=== PATIENT | female | born 1955 | race Caucasian/White ===

== ENCOUNTER 2017-08-06 11:45 | Emergency (ER) | payer MEDICARE, MEDICAID ==
[2017-08-06 12:50] LABS: % BASOPHILS 0.5 % (0.0-2.0); % LYMPHOCYTES 30.6 % (20.0-50.0); % MONOCYTES 5.6 % (2.0-10.0); % NEUTROPHILS 59.3 % (40.0-80.0); EOSINOPHILE ABSOLUTE 0.1 Th/cmm (0.1-0.4); HEMATOCRIT 32.6 % (41.0-60); HEMOGLOBIN 10.9 gm/dL (12-16); MEAN CELL VOLUME 87.4 fl (81-100); MEAN CORPUSCULAR HEMOGLOBIN 29.2 pg (27.0-31.0); MEAN CORPUSCULAR HGB CONC 33.5 pg (28.0-36.0); MONOCYTE ABSOLUTE 0.2 Th/cmm (0.3-1.0); PLATELET COUNT 166 Th/cmm (150-400); RED BLOOD COUNT 3.73 Mil/cmm (3.80-5.10); RED CELL DISTRIBUTION WIDTH 12.8 % (11.5-20.0)
--- NOTE | 2017-08-06 12:50 | ED Physician Chart ---
ED Chief Complaint/HPI - Patient Information Date Seen:: 08/06/17 Time Seen:: 12:15 Chief Complaint:: RIGHT LEG PAIN History of Present Illness:: THIS IS A 62 YR FEMALE SENT FROM A RETIREMENT FOR AN EVALUATION OF THE RIGHT LOWER EXTREMITY FOR A FRACTURE THAT SHE SUSTAINED ON LAST . SHE IS NOW UNABLE TO STAND OR WALK BECAUSE OF THE PAIN. Allergies:: Allergies Allergy/AdvReac Type Severity Reaction Status Date / Time divalproex sodium Allergy Mild Verified 08/06/17 12:05 [From Depakote] haloperidol [From Haldol] Allergy Verified 08/06/17 12:06 quetiapine [From Seroquel] Allergy Verified 08/06/17 12:06 topiramate [From Topamax] Allergy Verified 08/06/17 12:06 Vitals:: Vital Signs - 8 hr 08/06/17 12:06 Temp 98.3 F HR 74 RR 19 BP 101/83 O2 Sat % 94 Historian:: Patient, Medical Records Review:: Nurse's Note Reviewed, Transfer documents Reviewed ED Review of Systems - Review of Systems General/Constitutional: No fever, No chills, No weight loss, No weakness, No diaphoresis, No edema, No loss of appetite Skin: No skin lesions, No rash, No bruising Head: No headache, No light-headedness Eyes: No loss of vision, No pain, No diplopia ENT: No earache, No nasal drainage, No sore throat, No tinnitus Neck: No neck pain, No swelling, No thyromegaly, No stiffness, No mass noted Cardio Vascular: No chest pain, No palpitations, No PND, No orthopnea, No edema Pulmonary: No SOB, No cough, No sputum, No wheezing GI: No nausea, No vomiting, No diarrhea, No pain, No melena, No hematochezia, No constipation, No hematemesis G/U: No dysuria, No frequency, No hematuria Musculoskeletal: Bone or joint pain, No back pain, No muscle pain Endocrine: No polyuria, No polydipsia Psychiatric: No prior psych history, No depression, No anxiety, No suicidal ideation Hematopoietic: No bruising, No lymphadenopathy Allergic/Immuno: No urticaria, No angioedema Neurological: No syncope, No focal symptoms, No weakness, No paresthesia, No headache, No seizure, No dizziness, No confusion, No vertigo ED Past Medical History - Past Medical History Obtainable: Yes Past Medical History: CAD, Arthritis, Dementia Family History: None Social History: Non Smoker, No Alcohol, No Drug Use, Care Facility Family Medical History - Family Member Mother History Unknown: Yes Ethnicity: Living Status: Unknown ED Physical Exam - Physical Examination General/Constitutional: Awake, Well-developed, well-nourished, Alert, No distress, GCS 15, Non-toxic appearing, Ambulatory Head: Atraumatic Eyes: Lids, conjuctiva normal, PERRL, EOMI Skin: Nl inspection, No rash, No skin lesions, No ecchymosis, Well hydrated, No lymphadenopathy ENMT: External ears, nose nl, Nasal exam nl, Lips, teeth, gums nl Neck: Nontender, Full ROM w/o pain, No JVD, No nuchal rigidity, No bruit, No mass, No stridor Respiratory: Nl effort/Exclusion, Clear to Auscultation, No Wheeze/Rhonchi/Rales Cardio Vascular: RRR, No murmur, gallop, rubs, NL S1 S2 GI: No tenderness/rebounding/guarding, No organomegaly, No hernia, Normal BS's, Nondistended, No mass/bruits, No McBurney tenderness : No CVA tenderness Extremities: Full ROM, normal strength in all extremities, No edema, Normal digits & nails Other Extremities comments:: THE RIGHT DISTAL TIBIAL AREA IS TENDER WITH LIMITED PAINFUL ROM. THE MEDIAL AND LATERAL MALLEOUS IS NOT TENDERNESS. Neuro/Psych: Alert/oriented, DTR's symmetric, Normal sensory exam, Normal motor strength, Judgement/insight normal, Mood normal, Normal gait, No focal deficits Misc: Normal back, No paraspinal tenderness ED Labs/Radiology/EKG Results - Lab Results Results: Abnormal Lab Results 08/06/17 08/06/17 08/06/17 12:44 12:44 12:44 WBC 3.3 L RBC 3.73 L Hgb 10.9 L Hct 32.6 L MCV 87.4 MCH 29.2 MCHC Differential 33.5 RDW 12.8 Plt Count 166 MPV 7.0 Neutrophils % 59.3 Lymphocytes % 30.6 Monocytes % 5.6 Eosinophils % 4.0 Basophils % 0.5 Sodium 134 L Potassium 4.2 Chloride 100 Carbon Dioxide 27.8 Anion Gap 10.4 BUN 18 Creatinine 0.6 Est GFR ( Amer) > 60.0 Est GFR (Non-Af Amer) > 60.0 BUN/Creatinine Ratio 30.0 Glucose 77 Calcium 8.7 Total Bilirubin 0.3 AST 13 ALT 8 Alkaline Phosphatase 84 Troponin I < 0.01 L Total Protein 7.1 Albumin 3.4 L Globulin 3.7 Albumin/Globulin Ratio 0.9 L - Radiology Results Results: RIGHT TIBIA FRACTURE CHEST X-RAY = NAD ED Assessment - Assessment General Assessment: FRACTURE OF THE RIGHT TIBIA Splint Care: Splint applied Post Procedure/Splint Exam: No Active Bleeding, Neuro/Vascular Exam (NORMAL) ED Septic Shock - . Is Septic Shock (SBP<90, OR Lactate>4 mmol\L) present?: No - <6hrs of presentation: Vital Signs: Vital Signs - 8 hr 08/06/17 12:06 Temp 98.3 F HR 74 RR 19 BP 101/83 O2 Sat % 94 ED Reassessment (Disposition) - Reassessment Reassessment Condition:: Improved - Diagnosis Diagnosis:: FRACTURE OF THE RIGHT TIBIA - Patient Disposition Discharge/Transfer:: Acute Care (other hosp) Accepting Physician:: TASHA VILLAVICENCIO Time Called:: [facility] Transport Method:: BLS Condition at Disposition:: Improved ED Discharge Plan - Patient Disposition Admit/Discharge/Transfer: TRANSFER TO ACUTE HOSP Condition at Disposition: Improved
[2017-08-06 12:52] LABS: WHITE BLOOD COUNT 3.3 Th/cmm (4.8-10.8)
[2017-08-06 12:59] VITALS: BP 101/83
[2017-08-06 13:06] LABS: ALB/GLOB RATIO 0.9 (1.0-1.8); ALBUMIN 3.4 gm/dL (3.7-5.3); ALKALINE PHOSPHATASE 84 U/L (34-104); ANION GAP 10.4 (7.0-16.0); BILIRUBIN,TOTAL 0.3 mg/dL (0.3-1.0); BUN - UREA NITROGEN 18 mg/dL (7-25); CALCIUM SERUM 8.7 mg/dL (8.6-10.3); CARBON DIOXIDE 27.8 mEq/L (21.0-31.0); CHLORIDE 100 mEq/L (98-107); CREATININE - SERUM 0.6 mg/dL (0.6-1.2); GFR AFRICAN-AMERICAN > 60.0 ml/min (>90); GFR NON AFRICAN-AMERICAN > 60.0 ml/min; GLUCOSE 77 mg/dL (70-105); POTASSIUM SERUM 4.2 mEq/L (3.5-5.1); SGOT 13 U/L (13-39); SGPT/ALT 8 U/L (7-52); SODIUM SERUM 134 mEq/L (136-145); TOTAL PROTEIN,SERUM 7.1 gm/dL (6.0-8.3)
[2017-08-06 13:35] LABS: PROTHROMBIN TIME (TEST) 10.4 SECONDS (9.5-11.5)
--- NOTE | 2017-08-07 09:02 | Diagnostic Imaging Report ---
Right tibia/fibula (2 views) HISTORY: Pain, trauma There is mildly displaced comminuted fracture of the distal tibia. Periosteal reaction noted about the proximal shaft of the fibula. Changes may be related to old trauma. Degenerative changes noted about the right knee area. IMPRESSION: 1. Mildly displaced comminuted fracture of the distal tibia.
--- NOTE | 2017-08-07 09:10 | Diagnostic Imaging Report ---
Right ankle (3 views) HISTORY: Pain, trauma There is a mildly displaced comminuted fracture of the distal tibia. Degenerative changes noted about the tibiotalar joint region. Spur formation noted off the dorsal and plantar aspects of the posterior calcaneus. Vascular calcification is seen. IMPRESSION: 1. Mildly displaced comminuted fracture of the distal tibia 2. Degenerative and chronic changes about the ankle region 3. Calcaneal spur formation
--- NOTE | 2017-08-07 09:12 | Diagnostic Imaging Report ---
Portable chest x-ray HISTORY: Pain, trauma The heart is enlarged. Cardiac electrode lead wires project over the right atrium and right ventricle. No focal pulmonary processes. Degenerative changes seen throughout the spine. IMPRESSION: 1. No acute abnormalities 2. Cardiomegaly
== END 2017-08-06 16:33 | disposition short-term general hospital (02) ==
LOC: ER 11:45
DX: S82.301A Unspecified fracture of lower end of right tibia, initial encounter for closed fracture (principal); I25.10 Atherosclerotic heart disease of native coronary artery without angina pectoris; Z88.5 Allergy status to narcotic agent; Z88.8 Allergy status to other drugs, medicaments and biological substances; X58.XXXA Exposure to other specified factors, initial encounter; Y93.89 Activity, other specified; Y92.89 Other specified places as the place of occurrence of the external cause; Y99.8 Other external cause status
CPT/HCPCS: 99285; 96372; 29515; 71045; 73610; 73590; 84484; 36415; 83605; 85025; 85610; 80053; J1885